=== PATIENT | male | born 1985 | race Caucasian/White ===

== ENCOUNTER 2019-04-05 12:48 | Emergency (ER) | payer BC, OTHER ==
[~2019-04-05] VITALS: Ht 177.8 cm; Wt 112.5 kg
[2019-04-05] MEDS ORDERED: IBUPROFEN 800800 M1 PO (14:10)
[2019-04-05 15:39] VITALS: BP 157/95
== END 2019-04-05 15:40 | disposition home or self-care (01) ==
LOC: ER 12:48
DX: S52.612A Displaced fracture of left ulna styloid process, initial encounter for closed fracture (principal); M20.012 Mallet finger of left finger(s); W23.0XXA Caught, crushed, jammed, or pinched between moving objects, initial encounter; Y92.89 Other specified places as the place of occurrence of the external cause; Y99.8 Other external cause status